=== PATIENT | female | born 1950 | race Caucasian/White ===

== ENCOUNTER 2025-04-13 10:09 | Outpatient (CLI) | payer MEDICARE, SELFPAY ==
--- NOTE | ~2025-04-13 | CT_ITS ---
EXAMINATION: CT_LELTCHWO_CT DATE: 04/13/2025 10:34 INDICATION: Primary osteoarthritis of the left hip for preoperative planning TECHNIQUE: High resolution computed tomography (CT) of the left lower extremity from the hip through the knee was performed without intravenous contrast. Additional sagittal and coronal reconstructions were performed. Automated exposure control and iterative reconstruction technique were employed. The dose- length product was 969.90 mGy-cm. COMPARISON: None FINDINGS: Bone alignment is normal. No fracture or suspected osteonecrosis. Moderate to severe osteoarthritis at the left hip with moderate to large marginal osteophytes along the acetabulum and femoral head and mild subarticular cystlike changes along the anterosuperior acetabulum. No hip joint effusion. Mild t ricompartmental osteoarthritis at the right knee also without joint effusion. Moderate osteoarthritis at the left sacroiliac joint. Sigmoid diverticulosis without adjacent from trace stranding to suggest diverticulitis. Bladder is normal. No free fluid in the pelvis or other abnormal fluid collections. No pathologically enlarged left pelvic or inguinal lymphadenopathy. Right total hip arthroplasty evident on the autism motor specialist topogram. IMPRESSION: 1. Moderate to severe left hip osteoarthritis. Reviewed, dictated and finalized at location A. R CUTTER
--- OUTSIDE RECORDS SUMMARY | 2025-04-13 10:15 | XMS_ITS | Encounter Summary ---
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 Name Role Phone Clint Berrios MD Primary Care Provider [phone] Reason for Visit * Reason Onset Date Comments Discuss Surgery 03/07/2022 Encounter Details Date Type Department Care Team (Late st Contact Info) Description 03/07/2022 Telephone [facility] [address] [place] [address] Arjun Montaño MD [address] [place], [place] [id number] Discuss Surgery Social History Tobacco Use Types Packs/Day Years Used Date Smoking Tobacco: Former Cigarettes 0 Q uit: 04/24/1992 Smokeless Tobacco: Never Alcohol Use Standard Drinks/Week Comments No 0 (1 standard drink = 0.6 oz pur e alcohol) Comments No Sex and Gender Information Value Date Recorded Sex Assigned at Not on file Legal Sex Female 5:16 PM [employer] IN[employer] Gender Identity Not on file Sexual Orientation Not on file documented as of this encounter Miscellaneous Notes * Telephone Encounter - Chidi Ruvalcaba RN - 03/08/2022 10:18 AM CST She needs Stent placed on 03/20. Then she has to wait a couple months. Recently Her son had a stroke and is unresponsive currently so has to deal with several issues. Offered her our condolences. I will keep her and her family in my prayers. Assured her that Uro Proc is good for at least 6 months, probably more. She was grateful for information. Wants Dr Montaño to know, she thinks the world of Dr Montaño. Will call us when she's ready to reschedule. 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 Pt states that she will back when ready to schedule and would like to know if she will have to repeat the uro testing? Please advise? [employer] INST[employer]ER documented in this encounter Plan of Treatment Not on file documented as of this encounter Visit Diagnoses Not on filedocumented in this encounter Care Teams Microfilm Machine Operator Relationship Specialty Start Date End Date Clint Berrios MD [address] [place] [id number] PCP - General 01/05/10 documented as of this encounter
--- OUTSIDE RECORDS SUMMARY | 2025-04-13 10:15 | XMS_ITS | Clinical Summary ---
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 accordance with current CDC screening recommendations. Interpretive data was last revised on 2019. Testing performed by: [facility], [address] [place] [address], [place]., [address] Blood 02/18/2022 1:37 PM CDT 02/18/2022 7:35 PM CDT us Mk Lopez MD LAB MICROBIO LOGY - GENERAL ORDERABLES Edited Result - Final [facility] Department [place] [address] from Last 3 Months or Most Recently Relevant to Health Maintenance Insurance [facility] MEDICARE AET SENIOR SUPPLEMENT MEDICARE AETNA SENIOR SUPPLEMENT Advance Directives For more information, please contact: [phone] Documents on File Type Date Recorded Patient Clinical Research Nurse Coordinator Expl anation ADVANCE DIRECTIVE 03/16/2022 8:20 AM Curtis r of Neurophysiology Tech-Medical * Full Code (Latest Code Status on File) Date Activated Date Inactivated Comments 07/05/2023 8:15 AM 07/05/2023 2:50 PM * Full Code Date Activated Date Inactivated Comments 03/15/2022 10:26 AM 03/16/2022 4:02 PM * Full Code Date Activated Date Inactivated Comments 02/18/2022 12:45 PM 02/18/2022 6:39 PM * Full Code Date Activated Date Inactivated Comments 09/04/2017 11:10 AM 09/04/2017 3:52 PM Care Teams Art Model Relationship Specialty Start Date End Date Clint Berrios MD [address] [place] [address] PCP - General 07/22/16 Black Panda MD [address] [place] [address] Consulting Physician Cardiology 01/04/18 [place] [address] [facility] [address] [address] [address] Consulting Physician Neurology 01/04/18 [place] [id number] [address] Referring Physician Orthopedic Surgery 01/04/18
--- OUTSIDE RECORDS SUMMARY | 2025-04-13 10:15 | XMS_ITS | Clinical Summary ---
Author Organization [facility] Address [address] [place] [address] Phone Care Team Providers Care Manager Integration Name Role Phone Clint Berrios MD Primary Care Provider +1- [phone] Allergies Active Allergy Reactions Criticality Noted Date Comments Anise Oil (Pimpinella Anisum) Nausea 2017 Morphine Shortness of Breath 06/09/2017 Medications metoprolol tartrate (LOPRESSOR) 50 MG Tablet Take 50 mg by mouth 2 times daily. Active Glatiramer Acetate (COPAXONE SC) by Subcutaneous route. Active Social History Tobacco Use Types Packs/Day Years Used Date Smoking Tobacco: Former Smokeless Tobacco: Never Alcohol Use Standard Drinks/Week Comments No 0 (1 standard drink = 0.6 oz pur e alcohol) Comments No Sex and Gender Information Value Date Recorded Sex Assigned at Not on file Legal Sex Female 10:16 PM CDT Gender Identity Not on file Sexual Orientation Not on file Last Filed Vital Signs Vital Sign Reading Time Taken Comments Blood Pressure 127/59 06/10/2017 1:15 AM CREATIVE TECHNOLOGIST Pulse 60 06/10/2017 1:30 AM CREATIVE TECHNOLOGIST Temperature 36.7 C (98.1 F) 06/09/2017 11:20 PM CREATIVE TECHNOLOGIST Respiratory Rate 14 06/10/2017 1:30 AM CREATIVE TECHNOLOGIST Oxygen Saturation 99% 06/10/2017 1:30 AM CREATIVE TECHNOLOGIST Inhaled Oxygen Concentration - - Weight 67.1 kg (148 lb) 06/09/2017 11:20 PM CREATIVE TECHNOLOGIST Height 162.6 cm (5' 4) 06/09/2017 11:20 PM CREATIVE TECHNOLOGIST Body Mass Index 25.4 06/09/2017 11:20 PM CREATIVE TECHNOLOGIST Plan of Treatment Not on file Care Teams Manager Integration Relationship Specialty Start Date End Date Clint Berrios MD [address] [address] PCP - General Internal Medicine 06/10/17
--- OUTSIDE RECORDS SUMMARY | 2025-04-13 10:15 | XMS_ITS | Clinical Summary ---
Author Organization [facility] Address [address] [place] [address] Care Team Providers Care Director Business Development Name Role Phone Clint Berrios MD Primary Care Provider +1- [phone] Source Comments [facility],non-owned Affiliates and Associated Physician Practices is amultiple site organization consisting of ambulatory clinics and hospital sitesin [place], [place] and [place]. This disclosure is being madepursuant to the Care Everywhere program and may not contain all information available regarding this patient. Last updated 18.[facility] [employer] Allergies Active Allergy Reactions Criticality Noted Date Comments Anise Flavor Shortness of Breath High 12/07/2021 Reaction: trouble breathing, Anise Oil Nausea and/or Vomiting,Other,Palpitati ons Low 02/28/2017 HTN TACHYCARDIA H/A Morphine Shortness of Breath High 02/28/2017 Medications * Be aware that medications may not be up to date on this document. Alwaysverify current medications with the patient. clobetasol (TEMOVATE) 0.05 % ointment Apply to affected area BID. 7 Active vitamin D (CHOLECACIFERO L) 5000 UNITS capsule Take by mouth. 7 Active metroNIDAZOLE (METROLOTION) 0.75 % by Apply externally route. 7 Active metoprolol tartrate (LOPRESSOR) 50 MG tablet Take 1.5 (one and one-half) tablets by mouth 2 times daily 7 Active glatiramer (COPAXONE) 20 MG/ML prefilled syringe Inject 20 mg subcutaneously DAILY. 7 Active Cyanocobalamin (VITAMIN B 12) 100 MCG Take by mouth. 7 Active Red Yeast Rice Extract 600 MG Take 1 tablet by mouth 3 times daily Active Active Problems Problem Noted Date Diagnosed Date Abdominal hernia without obstruction or gangrene 03/01/2017 Cystocele, midline 03/01/2017 Female genital prolapse 03/01/2017 Hesitancy of micturition 03/01/2017 Rectocele 03/01/2017 Immunizations Immunization Administration Dates Next Due INFLUENZA VACCINE 05/05/2020 Pneumococcal Pcv13 Conj 04/11/2018 TDAP (7yrs+) 11/19/2019 Family History Medical History Relation Name Comments Cancer - Breast Maternal Aunt MULTIPLE Diabetes - Type 2 Maternal Aunt Cancer - Breast Mother Hypertension Mother Osteoporosis Sister Relation Name Status Comments Maternal Aunt Mother Sister Social History Tobacco Use Types Packs/Day Years Used Date Smoking Tobacco: Former Cigarettes 0 Q uit: 04/24/1992 Smokeless Tobacco: Never Alcohol Use Standard Drinks/Week Comments No 0 (1 standard drink = 0.6 oz pur e alcohol) Comments No Sex and Gender Information Value Date Recorded Sex Assigned at Not on file Legal Sex Female 5:16 PM SOFTWARE SUPPORT TECHNICIAN Gender Identity Not on file Sexual Orientation Not on file Last Filed Vital Signs Vital Sign Reading Time Taken Comments Blood Pressure 144/76 02/24/2022 1:28 PM CDT Pulse - - Temperature - - Respiratory Rate - - Oxygen Saturation - - Inhaled Oxygen Concentration - - Weight 73.9 kg (163 lb) 02/24/2022 1:28 PM CDT Height 160 cm (5' 3) 02/24/2022 1:28 PM CDT Body Mass Index 28.87 02/24/2022 1:28 PM CDT Plan of Treatment Health Maintenance Due Date Last Done Comments BONE DENSITY TESTING 1950 COLOGUARD (AGES 45-75) - COLON CA SCREENING 1950 CT COLONOGRAPHY - COLON CA SCREENING 1950 FIT - COLON CA SCREENING 1950 FLEX SIG - COLON CA SCREENING 1950 LIPID TESTING 1950 HEPATITIS C SCREENING 07/01/1968 ZOSTER VACCINE (1 of 2) 2000 PNEUMOCOCCAL VACCINE 50+ (2 of 2 - PCV20 or PCV21) 04/11/2019 04/11/2018 DEPRESSION SCREENING 04/24/2024 MAMMOGRAM 12/21/2024 12/21/2022, 11/24, 10/27/2021 (Done Outside Per Report) COVID-19 VACCINE (1 - season) 2024 INFLUENZA VACCINE (#1) 2024 , 02/13/2019, 02/19/2018, Additional history exists Respiratory Syncytial Virus (RSV) Vaccine Pt: or over 60 yrs (1 - 1-dose 75+ series) 2025 DTAP/TDAP/TD VACCINES (2 - Td or Tdap) 11/18/2029 11/19/2019 COLON MONITORING 07/04/2033 07/05/2023 COLONOSCOPY - COLON CA SCREENING 07/04/2033 07/05/2023 Colorectal Cancer Screening 07/04/2033 HEPATITIS B VACCINE Aged Out No longe r eligible based on patient's age to complete this topic HIB VACCINE Aged Out No longer eligi ble based on patient's age to complete this topic HPV VACCINE Aged Out No longer eligi ble based on patient's age to complete this topic MENINGOCOCCAL (Group B) VACCINE SHARED DECISION-MAKING Aged Out No longer eligible based on patient's age to complete this topic MENINGOCOCCAL GROUPS A/C/Y/W VACCINE Aged Out No longer eligible based on patient's age to complete this topic Insurance MEDICARE AETNA Care Teams Director Business Development Relationship Specialty Start Date End Date Clint Berrios MD [address] [place] [address] PCP - General 01/05/10
--- NOTE | 2025-04-13 10:32 | ECG_ITS ---
Test Date: 2025-04-13 10:47:42 Measurements Intervals [place] Rate: 57 P: 68 AL: 201 QRS: -30 QRSD: 146 T: 114 QT: 454 QTc: 445 Interpretive Statements SINUS BRADYCARDIA BORDERLINE AV CONDUCTION DELAY LEFT BUNDLE BRANCH BLOCK BASELINE ARTIFACT- V3, V6 ABNORMAL ECG No previous ECG available for comparison Electronically Signed On 04-13-2025 17:07:03 [employer] PRODUCTION ASSOCIATE by Anton Harris D.O.
== END 2025-04-13 10:10 | disposition home or self-care (01) ==
PROVIDERS: PCP Internal Medicine Infectious Disease; Visit Provider Orthopaedic Surgery
DX: Z01.818 Encounter for other preprocedural examination (principal); R94.31 Abnormal electrocardiogram [ECG] [EKG]; M17.11 Unilateral primary osteoarthritis, right knee; M16.12 Unilateral primary osteoarthritis, left hip; I10 Essential (primary) hypertension
CPT/HCPCS: 73700; 93005